=== PATIENT | female | born 2000 | race Caucasian/White ===

== ENCOUNTER 2020-04-25 17:47 | Emergency (ER) | payer BC, OTHER ==
[~2020-04-25] VITALS: Ht 160 cm; Wt 79.5 kg
[2020-04-25 19:18] LABS: URINE HCG NEGATIVE (NEG)
[2020-04-25 19:24] LABS: COLOR,URINE YELLOW (Yellow); GLUCOSE, URINE NEGATIVE (Neg); KETONES,URINE NEGATIVE (Neg); LEUKOCYTE ESTERASE ,URINE NEGATIVE (Neg); NITRITES, URINE NEGATIVE (Neg); OCCULT BLOOD,URINE MODERATE (Neg); PROTEIN,URINE NEGATIVE (Neg); UROBILINOGEN,URINE 0.2 E.U/dL (0.2-1.0)
[2020-04-25 19:35] LABS: UA COLLECTION TYPE CLN CATCH MIDSTREAM
[2020-04-25 19:37] LABS: BACTERIA,URINE 2+ /HPF (Neg); CLARITY,URINE SLIGHTLY CLOUDY (Clear); WBC,URINE 0-4 /HPF (0-4)
[2020-04-25 19:38] LABS: RBC,URINE 0-2 /HPF (0-2)
[2020-04-25 19:39] LABS: SQUAMOUS EPITHELIAL CELL,UR MANY /LPF (FEW)
[2020-04-25] MEDS ORDERED: ONDA4TAB6 PO (19:48)
== END 2020-04-25 20:06 | disposition home or self-care (01) ==
LOC: ER 17:48
DX: R11.2 Nausea with vomiting, unspecified (principal); Z20.822 Contact with and (suspected) exposure to COVID-19; R05 Cough; F17.200 Nicotine dependence, unspecified, uncomplicated; Z88.0 Allergy status to penicillin; Z88.1 Allergy status to other antibiotic agents
CPT/HCPCS: 36415; 81001; 81025; 99283; U0003

== ENCOUNTER 2020-09-26 06:06 | Emergency (ER) | payer BC, OTHER ==
[~2020-09-26] VITALS: Ht 160 cm; Wt 85.0 kg
[~2020-09-26 06:06] MED LIST: ONDA4TAB6 PO
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
[2020-09-26] MEDS ORDERED: ketorolac trometh. 30mg/ml inj. IM ONE (07:20)
[2020-09-26] MEDS ORDERED: morphine 5 MG/ML injection IM ONE (07:20)
[2020-09-26] MEDS ORDERED: morphine 4 MG/ML inj SYRINge IM ONE (07:50)
[2020-09-26] MEDS ORDERED: HYDR-3972 PO (08:57)
[2020-09-26] MEDS ORDERED: IBUP-1986 PO (08:57)
[2020-09-26] MEDS ORDERED: HYDROcodone/acetaminophen 10/325mg tab PO ONE (09:00)
[2020-09-26 09:08] VITALS: BP 138/81
[2020-09-26 09:21] LABS: CLARITY,URINE CLOUDY (Clear); COLOR,URINE YELLOW (Yellow); GLUCOSE, URINE NEGATIVE (Neg); KETONES,URINE NEGATIVE (Neg); LEUKOCYTE ESTERASE ,URINE NEGATIVE (Neg); NITRITES, URINE NEGATIVE (Neg); OCCULT BLOOD,URINE LARGE (Neg); PROTEIN,URINE NEGATIVE (Neg); UROBILINOGEN,URINE 0.2 E.U/dL (0.2-1.0)
[2020-09-26 09:27] LABS: UA COLLECTION TYPE CLN CATCH MIDSTREAM; URINE HCG NEGATIVE (NEG)
[2020-09-26 09:28] LABS: BACTERIA,URINE 2+ /HPF (Neg); MUCUS STRANDS MANY /LPF (Neg); RBC,URINE 0-2 /HPF (0-2); WBC,URINE 0-4 /HPF (0-4)
[2020-09-26 09:29] LABS: SQUAMOUS EPITHELIAL CELL,UR MANY /LPF (FEW)
== END 2020-09-26 11:10 | disposition home or self-care (01) ==
LOC: ER 06:06
DX: S00.83XA Contusion of other part of head, initial encounter (principal); S60.811A Abrasion of right wrist, initial encounter; R10.12 Left upper quadrant pain; R51.9 Headache, unspecified; M54.2 Cervicalgia; Z88.0 Allergy status to penicillin; Z88.1 Allergy status to other antibiotic agents; Z79.899 Other long term (current) drug therapy; Y08.89XA Assault by other specified means, initial encounter; Y93.89 Activity, other specified; Y92.89 Other specified places as the place of occurrence of the external cause; Y99.8 Other external cause status
CPT/HCPCS: 70450; 72125; 73080; 73110; 73130; 74176; 81001; 81025; 96372; 99285; J1885; J2270

== ENCOUNTER 2020-12-08 11:57 | Inpatient (IN) | payer BC ==
[~2020-12-08] VITALS: Ht 160 cm; Wt 79.5 kg
[~2020-12-08 11:57] MED LIST changes: +IBUP-1986 PO
[2020-12-08 12:52] LABS: BASOPHILS % (AUTO) 0.3 % (0-1); EOSINOPHILS # (AUTO) 0.1 X10'3 (0-0.9); HEMOGLOBIN 13.8 g/dl (12.0-16.0); LYMPHOCYTES # (AUTO) 1.2 X10'3 (1.1-4.8); LYMPHOCYTES % (AUTO) 17.4 % (21-51); MEAN CORPUSCULAR HEMOGLOBIN 27.8 PG (27.0-31.0); MEAN CORPUSCULAR HGB CONC 33.6 g/dL (33.0-36.5); MEAN CORPUSCULAR VOLUME 82.8 FL (78-98); MEAN PLATELET VOLUME 8.4 FL (7.4-10.4); MONOCYTES # (AUTO) 0.5 X10'3 (0-0.9); MONOCYTES % (AUTO) 7.7 % (2-12); NEUTROPHILS % (AUTO) 72.6 % (42-75); PLATELET COUNT 259 X10'3 (140-440); RED BLOOD COUNT 4.95 X10'6 (4.20-5.60); RED CELL DISTRIBUTION WIDTH 13.9 % (11.5-14.5); WHITE BLOOD COUNT 6.9 X10'3 (4.5-11.0)
[2020-12-08 13:01] LABS: ALANINE AMINOTRANSFERASE 38 U/L (12-78); ALKALINE PHOSPHATASE 82 IU/L (20-180); ANION GAP 10 (8-16); ASPARTATE AMINO TRANSFERASE 24 U/L (10-37); BILIRUBIN,TOTAL 0.4 MG/DL (0.1-1.0); BLOOD UREA NITROGEN 8 MG/DL (7-18); BUN/CREATININE RATIO 11.9 (6.6-38.0); CHLORIDE 106 MMOL/L (99-107); CREATININE 0.67 MG/DL (0.40-0.90); ETHANOL < 0.010 GM/DL (0.0-0.010); GLUCOSE 82 MG/DL (70-104); POTASSIUM 3.7 MMOL/L (3.5-5.1); SODIUM 143 MMOL/L (135-145); TOTAL CARBON DIOXIDE 27.2 MMOL/L (24-32); TOTAL PROTEIN 8.2 G/DL (6.4-8.2); eGFR > 90 ML/MIN
[2020-12-08] MEDS ORDERED: NICOTINE POLACRILEX 2 MG LOZENGE BC PRN (15:10)
[2020-12-08 15:13] LABS: URINE HCG NEGATIVE (NEG)
--- NOTE | 2020-12-08 15:15 | NUR ---
Pt BIB mother for depression with suicidal thoughts. Pt cooperative with assessment. Pt has h/o alcohol abuse per mom and pt.
[2020-12-08 15:17] LABS: COLOR,URINE YELLOW (Yellow); UA COLLECTION TYPE NON-SPECIFIED
[2020-12-08 15:18] LABS: CLARITY,URINE SLIGHTLY CLOUDY (Clear); GLUCOSE, URINE NEGATIVE (Neg); KETONES,URINE NEGATIVE (Neg); LEUKOCYTE ESTERASE ,URINE NEGATIVE (Neg); NITRITES, URINE NEGATIVE (Neg); OCCULT BLOOD,URINE SMALL (Neg); PROTEIN,URINE NEGATIVE (Neg); UROBILINOGEN,URINE 0.2 E.U/dL (0.2-1.0)
[2020-12-08] MEDS ORDERED: NO HOME MEDS (15:24)
[2020-12-08 15:29] LABS: URINE AMPHETAMINE SCREEN NEGATIVE (Neg); URINE BARBITUATE SCREEN NEGATIVE (Neg); URINE BENZODIAZEPINES SCREEN NEGATIVE (Neg); URINE CANNABINOID SCREEN NEGATIVE (Neg); URINE COCAINE SCREEN NEGATIVE (Neg); URINE METHADONE SCREEN NEGATIVE (Neg); URINE OPIATE SCREEN NEGATIVE (Neg); URINE PHENCYCLIDINE SCREEN NEGATIVE (Neg)
[2020-12-08 15:36] LABS: BACTERIA,URINE 1+ /HPF (Neg); MUCUS STRANDS MODERATE /LPF (Neg); RBC,URINE 0-2 /HPF (0-2); SQUAMOUS EPITHELIAL CELL,UR FEW /LPF (FEW)
--- NOTE | 2020-12-08 17:00 | NUR ---
Pt mom still at bedside. Pt napping on and off. Pt continues to endorse depression and suicidal thoughts.
[2020-12-08] MEDS ORDERED: magnesium hydroxide 30ml (MOM) UD suspension PO PRN (19:20)
[2020-12-08] MEDS ORDERED: traZODone 50mg tablet PO PRN (19:20)
[2020-12-08] MEDS ORDERED: mag hydrox/Alum hydrox/simeth 30ml oral suspension PO PRN (19:20)
[2020-12-08] MEDS ORDERED: LORazepam 1 MG tablet PO PRN (19:20)
[2020-12-08] MEDS ORDERED: loperamide 2mg capsule PO PRN (19:20)
[2020-12-08] MEDS ORDERED: acetaminophen 325mg tablet PO PRN ×2 (19:20)
[2020-12-08 20:30] VITALS: BP 132/75
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
--- NOTE | 2020-12-09 05:40 | NUR ---
Nursing Progress Note: Legal hold: 5150 Client on involuntary status for DTS Report received from Hiwot AUGUSTE with use of SBAR Why are they here: Pt BIB mom at pt request for depression and suicidal ideation which has increased since July when a friend of hers . Pt also has increased her alcohol intake and drinks 2-4 x/week. Assessment What has happened this shift: Pt cooperative with admission. Pt sat up in room drawing and fell asleep around 2330. S/I, H/I:+ S.I. A/VH: denies Sleep:6 hours ADL's:showered Group attendance:n/a Were meds taken:n/a Any med S/E: n/a Mental Status Exam Appearance: good hygiene, green scrubs Eye contact: fair Behavior:calm, cooperative Speech:clear, coherent Mood:depressed Affect:blunted Thought process: iintact Thought Content: r/t anxiety being in hospital Cognition: intact Insight: fair Judgment: fair Interventions PRN's used:n/a Therapeutic interventions: oriented to the unit, 1:1 to build trust and help pt feel safe, 2 person skin check upon admission, provided with diversional activities, q-15 minute observation for pt safety. Restraints/seclusion/emergency medication:n/a Justification of Continued Inpatient Treatment: To provide a safe environment while pt continues to endorse suicidal ideation. Evaluation of possible medication intervention.
[2020-12-09 07:35] VITALS: BP 110/58
[2020-12-09] MEDS ORDERED: buPROPion 75mg tablet PO ONE (09:15)
[2020-12-09] MEDS ORDERED: nicotine 21mg patch - 24 hr TD ONE (09:15)
[2020-12-09 10:08] LABS: HEMOGLOBIN A1C 5.2 % (4.5-6.2)
[2020-12-09 10:16] LABS: CHOL/HDL RATIO 3.3 (0.00-4.99); CHOLESTEROL 144 MG/DL (0-200); HDL CHOLESTEROL 44 MG/DL (35-60); LDL CHOLESTEROL 94 MG/DL (50-100); TRIGLYCERIDES 75 MG/DL (20-135)
[2020-12-09] MEDS: NICOTINE POLACRILEX 2 MG LOZENGE BC PRN (14:34)
--- NOTE | 2020-12-09 16:26 | NUR ---
Nursing Progress Note Legal hold: 5150 Client on involuntary status for DTS Report received from Hiwot AUGUSTE with use of SBAR Why are they here: Pt BIB mom at pt request for depression and suicidal ideation which has increased since July when a friend of hers . Pt also has increased her alcohol intake and drinks 2-4 x/week. Assessment What has happened this shift: Received Pt in bed sleeping w/o distress at the beginning of the shift. Pt woke for vitals and ate breakfast well. Pt tolerated assessments well and was pleasant when approached. She returned to bed and isolated to her room in the morning. Pt saw Dr Velazquez and she received first dose of Wellbutrin and Emerson. Patch. Pt showered in afternoon and got some clothes delivered from family. She spoke on phone for some time and colored in community room. Pt quiet and remains depressed. S/I, H/I: Pt endorses SI A/VH: Denies Sleep: Napped in AM ADL's: Showered Group attendance: n/a Were meds taken: Yes Any med S/E: None Mental Status Exam Appearance: Casual, clean Eye contact: Fair Behavior: Calm, cooperative Speech: Clear, coherent Mood: Depressed Affect: Blunted Thought process: Linear, intact Thought Content: Being comfortable here Cognition: Intact Insight: Fair Judgment: Fair Interventions PRN's used: Emerson. [place] Therapeutic interventions: oriented to the unit, 1:1 to build trust and help pt feel safe, 2 person skin check upon admission, provided with diversional activities, q-15 minute observation for pt safety. Restraints/seclusion/emergency medication: n/a Justification of Continued Inpatient Treatment: To provide a safe environment while pt continues to endorse suicidal ideation. Evaluation of possible medication intervention.
[2020-12-09 19:23] VITALS: BP 119/80
--- NOTE | 2020-12-10 03:42 | NUR ---
Nursing Progress Note Legal hold: 5150 Client on involuntary status for DTS Report received from Hiwot AUGUSTE with use of SBAR Why are they here: Pt BIB mom at pt request for depression and suicidal ideation which has increased since July when a friend of hers . Pt also has increased her alcohol intake and drinks 2-4 x/week. Assessment What has happened this shift: Received Pt in community room coloring and interacting appropriately with another Pt. Pt appears to be minimizing effects of ETOH binging and recent traumas. Encouraged to work on F/U plans and discussed serious nature of SI. Pt slept well w/o prn. S/I, H/I: Pt endorses SI A/VH: Denies Sleep: See sleep assessment ADL's: Showered Group attendance: n/a Were meds taken: Yes Any med S/E: None Mental Status Exam Appearance: Casual, clean Eye contact: Fair Behavior: Calm, cooperative Speech: Clear, coherent Mood: Depressed Affect: Blunted Thought process: Linear, intact Thought Content: Being comfortable here Cognition: Intact Insight: Fair Judgment: Fair Interventions PRN's used: None Therapeutic interventions: Oriented to the unit, 1:1 to build trust and help pt feel safe, provided with diversional activities, Maintain safe and therapeutic milieu, q-15 minute observation for pt safety. Restraints/seclusion/emergency medication: n/a Justification of Continued Inpatient Treatment: To provide a safe environment while pt continues to endorse suicidal ideation. Evaluation of possible medication intervention.
[2020-12-10 07:28] VITALS: BP 120/74
[2020-12-10] MEDS: buPROPion 75mg tablet PO SCH (07:34)
[2020-12-10] MEDS: nicotine 21mg patch - 24 hr TD SCH (07:34)
[2020-12-10] MEDS: NICOTINE POLACRILEX 2 MG LOZENGE BC PRN ×3 (10:37→18:41)
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
[2020-12-10 19:24] VITALS: BP 140/70
--- NOTE | 2020-12-10 23:57 | NUR ---
Nursing Progress Note: Legal hold: 5150 Client on involuntary status for DTS Report received from nurse with use of SBAR: Rogelio RN Why are they here: Pt BIB mom at pt request for depression and suicidal ideation which has increased since July when a friend of hers . Pt also has increased her alcohol intake and drinks 2-4 x/week. Assessment What has happened this shift: Patient coloring and social with peers in the community room at the beginning of shift. Pleasant and cooperative with care; no scheduled medications this shift. PRN Nicotine lozenge provided per request. Nicotine patch removed/discarded by grant writer. Patient is on menstrual cycle and provided hygiene products as necessary. She denies SI, HI, A/VH; does not appear preoccupied. Patient reports looking forward to discharging to her parents home. She participated in HS snack prior to bed; observed sleeping and does not appear to be having difficulty. S/I, H/I: Denies A/VH: Denies Sleep: Refer to sleep assessment ADL's: Independent Group attendance: NA Were meds taken: Yes Any med S/E: None observed or reported Mental Status Exam Appearance: Neat and appropriately dressed Eye contact: Moderate Behavior: Pleasant and cooperative, social Speech: Clear, audible, regular rhythm Mood: Euthymic Affect: Congruent to mood Thought process: Linear Thought Content: Goal oriented, meeting needs Cognition: A&O X4 Insight: Poor Judgment: Poor Interventions PRN's used: Nicotine Lozenge Therapeutic interventions: Introduced self and established rapport, maintained a safe and supportive environment, ensured contract for safety, provided clear and simple instructions, provided active listening and positive encouragement, and maintained Q 15min safety checks. Restraints/seclusion/emergency medication: NA Justification of Continued Inpatient Treatment: Pt. continues to require interruption of current crisis, medication adjustments, and a safe and supportive environment.
[2020-12-11] MEDS: buPROPion 75mg tablet PO SCH (08:20)
[2020-12-11] MEDS: nicotine 21mg patch - 24 hr TD SCH (08:20)
[2020-12-11] MEDS: NICOTINE POLACRILEX 2 MG LOZENGE BC PRN ×3 (08:23→21:22)
[2020-12-11 08:33] VITALS: BP 152/68
--- NOTE | 2020-12-11 12:42 | NUR ---
Nursing Progress Note: Legal hold: 5150 Client on involuntary status for DTS Report received from nurse with use of SBAR: Alice RN Why are they here: Pt BIB mom at pt request for depression and suicidal ideation which has increased since July when a friend of hers . Pt also has increased her alcohol intake and drinks 2-4 x/week. Assessment What has happened this shift: Received pt. sleeping in bed at the beginning of the shift, she awoke and attended breakfast in the Group Room. Afterwards, pt. remained up coloring and interacting with others as is her routine. Pt. showered and attended morning group, however she left early stating somewhat irritably, "I couldn't concentrate, and her voice and the slow pace were irritating me." Pt. refused the need for any PRN anxiolytic. This automatic typewriter inspector offered active listening and positive encouragement, and 1:1 completed. Pt. continues to deny any S/I, and states bluntly, "I'm fine." She continues to appear to be minimizing any MH s/s. Pt. admits she is disappointed that she will be staying on the unit until r/t medication adjustment and monitoring. When questioned by this automatic typewriter inspector regarding abstaining from alcohol when she goes home, pt. states in a somewhat dismissive way, "My parents don't have any, so I will." Pt. speaks on the telephone intermittently during the day to family members, continues to color, and hangs her artwork on the wall of her room. S/I, H/I: Denies A/VH: Denies, pt. does not appear internally preoccupied Sleep:Sleep hours are 5.75 ADL's: Independent Group attendance: Yes, however pt. left early stating, "I couldn't concentrate, and her voice and the slow pace were irritating me." Were meds taken: Yes Any med S/E: None Mental Status Exam Appearance: Neat and appropriately dressed Eye contact: Moderate Behavior: Cooperative and guarded Speech: Soft, responds minimally to direct questions Mood: Depressed Affect: Blunted Thought process: Linear Thought Content: Preoccupation on desire to discharge Cognition: A&O X4 Insight: Poor Judgment: Poor Interventions PRN's used: Nicotine Lozenge Therapeutic interventions: Maintained a safe and supportive environment, ensured contract for safety, provided clear and simple instructions, provided active listening and positive encouragement, and maintained Q 15min safety checks. Restraints/seclusion/emergency medication: N/A Justification of Continued Inpatient Treatment: Per Dr. Velazquez, pt. continues to require medication adjustment and a safe and supportive environment.
--- NOTE | 2020-12-11 14:05 | NUR ---
Pt. attended group today. Todays group was about the difference between Growth Mindset vs. Fixed Mindset. We learned about the differences and then discussed what aspect of developing a growth mindset they wanted to work on. Pt did not engaged in the group but did sit in the room and color while the group was going on. She left toward the end of the group. She did not wish to share her thoughts in the group today. Lois Graves, TOPPER PRESS OPERATOR AUTOMATIC
--- NOTE | 2020-12-11 14:30 | NUR ---
Initial: Pt admit for depression with SI. Currently on a regular diet and eating well with 100% PO intake since admit. [facility] 12/10. No documented edema or wounds. No nutrition diagnosis at this time. Will continue to follow. Recommendations: 1) Continue regular diet 2) Bowel care PRN 3) Weekly scaled weights Addendum: 12/11/20 at [address] Amended: Links added.
[2020-12-11] MEDS ORDERED: buPROPion 75mg tablet PO ONE (17:10)
--- NOTE | 2020-12-11 17:53 | NUR ---
Group Art Tx Continued: Patient was able to integrate the morning group concepts with the afternoon topic and guided imagery exercise. She was reluctant to share in group and appropriately requested to pass during the shared process time. Patient did allow this therapist to look at her drawing and journaling after the group. Content was focused on family and her belief that she would continue to improve her coping skills. She remained pleasant and appropriate with the group structure. *Please refer to the [facility] Case Notes for entire overview. Lizy Nguyen MA, HOUSEKEEPING ASSISTANT #[id number] [facility], Art Therapist Addendum: 12/11/20 at 1755 by Lizy Nguyen SS Amended: Links added.
[2020-12-11 19:31] VITALS: BP 147/84
[2020-12-11] MEDS: naltrexone 50mg tablet PO SCH (22:00)
--- NOTE | 2020-12-12 01:37 | NUR ---
Nursing Progress Note: Legal hold: 5250 Client on involuntary status for DTS Report received from nurse with use of SBAR: Rogelio RN Why are they here: Pt BIB mom at pt request for depression and suicidal ideation which has increased since July when a friend of hers . Pt also has increased her alcohol intake and drinks 2-4 x/week. Assessment What has happened this shift: Patient social in the community room at the beginning of shift. Pleasant and cooperative with care; compliant with medication. PRN Nicotine provided per request and Nicotine patch removed/discarded by story writer. Started on Naltrexone this shift; no ASE observed or reported. Patient denies SI, HI, A/VH; no delusional thought content expressed. Patient is looking forward/ hopeful to discharge to her parents. Patient showered, participated in HS snack and continued to socialize in the community room prior to bed; observed sleeping and does not appear to be having difficulty. S/I, H/I: Denies A/VH: Denies Sleep: Refer to sleep assessment ADL's: Independent Group attendance: NA Were meds taken: Yes Any med S/E: None observed or reported Mental Status Exam Appearance: Neat and appropriately dressed Eye contact: Moderate Behavior: Pleasant and cooperative, social Speech: Clear, audible, regular rhythm Mood: Euthymic Affect: Congruent to mood Thought process: Linear Thought Content: Goal oriented, meeting needs Cognition: A&O X4 Insight: Poor Judgment: Poor Interventions PRN's used: Nicotine Lozenge Therapeutic interventions: Introduced self and established rapport, maintained a safe and supportive environment, ensured contract for safety, provided clear and simple instructions, provided active listening and positive encouragement, and maintained Q 15min safety checks. Restraints/seclusion/emergency medication: NA Justification of Continued Inpatient Treatment: Pt. continues to require interruption of current crisis, medication adjustments, and a safe and supportive environment.
[2020-12-12] MEDS: buPROPion 75mg tablet PO SCH ×2 (07:23→12:08)
[2020-12-12] MEDS: nicotine 21mg patch - 24 hr TD SCH (07:23)
[2020-12-12 08:37] VITALS: BP 134/73
--- NOTE | 2020-12-12 13:46 | NUR ---
Pt. attended group today. The topic today was identifying the triggers, signs and symptoms of an upcoming episode/event so that Pts. can learn to apply coping skills before they get to a bad place with their symptoms. Pt. engaged in the group when asked a question otherwise she sat back and listened. Her mood appear a bit agitation and her affect was restricted. She was able to identify her warning signs and triggers. She identified that alcohol for her is a big trigger. She reported she will think she is feeling pretty okay and she will have a drink and then this will lead her to feelings of depression. She also was able to report that a warning sign for her of an impending episode is sleeping a lot but reported that she mostly doesn't know what starts the episodes. This "not knowing" causes her to feel anxiety about when she may feel bad again. She was alert and oriented X 4. Her thought content and thought process appeared WNL. Her demeanor was calm and she appeared a bit hesitant to fully engage with this Swimming Coach Or Instructor or her peers. Half way though the group she started doing a Word Search and seemed distracted. Lois Graves, MANAGEMENT TECHNICIAN
--- NOTE | 2020-12-12 16:40 | NUR ---
Nursing Progress Note: Legal hold: 5250 Client on involuntary status for DTS Report received from nurse with use of SBAR: Alice RN Why are they here: Pt BIB mom at pt request for depression and suicidal ideation which has increased since July when a friend of hers . Pt also has increased her alcohol intake and drinks 2-4 x/week. Assessment What has happened this shift: Pt. received sleeping in her room this morning. Pt awoke to receive her medication and 1:1 assessment completed. Pt. denies S/I, H/I, but acknowledges recent suicidal ideations at home. Pt. presents with good insights and states Ill go home with my parents and plan to f/u with mental health services after I discharge. Pt.in common area with cohorts working at her own pace coloring art pictures. Risk Assessment Analyst approached pt. to inquire how her day was going. Pt. reports Im okay but presented as guarded when conversing. Pt. ate all meals in dining room, used the telephone intermittently during the day, and attended group. S/I, H/I: Denies A/VH: Denies Sleep: Per NOC 6.5 hrs, ADL's: Independent Group attendance: Yes Were meds taken: Yes Any med S/E: None Mental Status Exam Appearance: Young female wearing street clothes Eye contact: Good Behavior: Cooperative and guarded Speech: Soft, responds minimally to direct questions Mood: Depressed Affect: Congruent with mood Thought process: Linear Thought Content: Preoccupation with discharge Cognition: A&O X4 Insight: Poor Judgment: Poor Interventions PRN's used: None Therapeutic interventions: Maintained a safe and supportive environment, ensured contract for safety, provided clear and simple instructions, provided active listening and positive encouragement, and maintained Q 15min safety checks. Restraints/seclusion/emergency medication: N/A Justification of Continued Inpatient Treatment: Per Dr. Velazquez, pt. continues to require medication adjustment and a safe and supportive environment.
[2020-12-12] MEDS: NICOTINE POLACRILEX 2 MG LOZENGE BC PRN (18:35)
[2020-12-12 19:24] VITALS: BP 127/76
[2020-12-12] MEDS: naltrexone 50mg tablet PO SCH (20:06)
--- NOTE | 2020-12-13 01:41 | NUR ---
Nursing Progress Note: Legal hold: 5250 Client on involuntary status for DTS Report received from nurse with use of SBAR: Rogelio RN Why are they here: Pt BIB mom at pt request for depression and suicidal ideation which has increased since July when a friend of hers . Pt also has increased her alcohol intake and drinks 2-4 x/week. Assessment What has happened this shift: Patient doing a puzzle in the community room with peers at the beginning of shift. Pleasant and cooperative with care; compliant with medication. PRN Nicotine lozenges provided per patient request; Nicotine patch removed/discarded by aligner typewriter. Patient denies SI, HI, A/VH; no delusional thought content expressed. Patient reports excitement to see her parents. Patient participated in HS snack and continued to socialize in community room prior to bed; observed sleeping and does not appear to be having difficulty. S/I, H/I: Denies A/VH: Denies Sleep: Refer to sleep assessment ADL's: Independent Group attendance: NA Were meds taken: Yes Any med S/E: None observed or reported Mental Status Exam Appearance: Neat and appropriately dressed Eye contact: Good Behavior: Pleasant and cooperative, social Speech: Clear, audible, regular rhythm Mood: Euthymic Affect: Congruent to mood Thought process: Linear Thought Content: Meeting needs, discharge Cognition: A&O X4 Insight: Poor Judgment: Poor Interventions PRN's used: Nicotine Lozenge x2 Therapeutic interventions: Introduced self and established rapport, maintained a safe and supportive environment, ensured contract for safety, provided clear and simple instructions, provided active listening and positive encouragement, and maintained Q 15min safety checks. Restraints/seclusion/emergency medication: NA Justification of Continued Inpatient Treatment: Pt. continues to require interruption of current crisis, medication adjustments, and a safe and supportive environment.
[2020-12-13] MEDS: buPROPion 75mg tablet PO SCH ×2 (07:27→11:52)
[2020-12-13] MEDS: nicotine 21mg patch - 24 hr TD SCH (07:28)
[2020-12-13 07:42] VITALS: BP 119/57
[2020-12-13] MEDS ORDERED: NICO-907 BC (11:01)
[2020-12-13] MEDS ORDERED: TRAZ-251 PO (11:01)
[2020-12-13] MEDS ORDERED: BUPR-94 PO (11:01)
[2020-12-13] MEDS ORDERED: NICO-687 TD (11:01)
[2020-12-13] MEDS ORDERED: NALT50TA PO (11:01)
--- NOTE | 2020-12-13 15:17 | NUR ---
Discharge Note: Reviewed all discharge instructions with Karen all paperwork signed and copies placed in chart.Follow up appts are with Psychiatrist: Appointment: 12/18/20 at 9 AM with Linda Coe, [facility] [address], [address] Her Therapist: Appointment: 12/19/20 with ANTONINO Wang, [address] [place] [address] . All medications were sent to her pharmacy of choice in [place]. Inventory completed and she left with all her belongings she came with. Pt. left the unit @0973.
== END 2020-12-13 15:05 | disposition home or self-care (01) | DRG 885 ==
LOC: ER 11:58 → ADULT MH 18:00
PROVIDERS: ADMIT Psychiatry & Neurology Psychiatry; ATTEND Psychiatry & Neurology Psychiatry
DX: F33.2 Major depressive disorder, recurrent severe without psychotic features (principal); R45.851 Suicidal ideations; F17.210 Nicotine dependence, cigarettes, uncomplicated; F10.20 Alcohol dependence, uncomplicated; Z20.822 Contact with and (suspected) exposure to COVID-19; R82.71 Bacteriuria; Z81.8 Family history of other mental and behavioral disorders; Z88.0 Allergy status to penicillin; Z88.1 Allergy status to other antibiotic agents; Z71.6 Tobacco abuse counseling; Z71.41 Alcohol abuse counseling and surveillance of alcoholic
CPT/HCPCS: 36415; 80053; 80061; 80305; 80320; 81001; 81025; 83036; 85025; 87081; 87635; 99285; C9803

== ENCOUNTER 2021-02-17 22:24 | Emergency (ER) | payer BC ==
[~2021-02-17] VITALS: Ht 160 cm; Wt 86.8 kg
[~2021-02-17 22:24] MED LIST changes: +BUPR-94 PO; -IBUP-1986 PO; +NALT50TA PO; +NICO-687 TD; +NICO-907 BC; -ONDA4TAB6 PO; +TRAZ-251 PO
[2021-02-17 22:49] VITALS: BP 127/81
== END 2021-02-17 23:22 | disposition home or self-care (01) ==
LOC: ER 22:25
DX: B34.9 Viral infection, unspecified (principal); Z20.822 Contact with and (suspected) exposure to COVID-19; Z88.0 Allergy status to penicillin; Z88.1 Allergy status to other antibiotic agents; Z79.899 Other long term (current) drug therapy
CPT/HCPCS: 36415; 99283; U0003; U0005

== ENCOUNTER 2022-04-02 | Emergency (ER) | payer BC ==
[~2022-04-02] VITALS: Ht 157.5 cm; Wt 85.0 kg
[2022-04-02 00:06] VITALS: BP 139/96
[2022-04-02 00:53] LABS: BASOPHILS % (AUTO) 0.4 % (0-1); EOSINOPHILS # (AUTO) 0.1 X10'3 (0-0.9); EOSINOPHILS % (AUTO) 1.4 % (0-6); HEMATOCRIT 36.2 % (35.0-45.0); LYMPHOCYTES # (AUTO) 1.9 X10'3 (1.1-4.8); LYMPHOCYTES % (AUTO) 21.2 % (21-51); MEAN CORPUSCULAR HEMOGLOBIN 25.6 PG (27.0-31.0); MEAN CORPUSCULAR VOLUME 77.6 FL (78-98); MEAN PLATELET VOLUME 8.2 FL (7.4-10.4); MONOCYTES # (AUTO) 0.6 X10'3 (0-0.9); MONOCYTES % (AUTO) 6.8 % (2-12); NEUTROPHILS # (AUTO) 6.2 X10'3 (1.8-7.7); NEUTROPHILS % (AUTO) 70.2 % (42-75); PLATELET COUNT 255 X10'3 (140-440); RED BLOOD COUNT 4.67 X10'6 (4.20-5.60); RED CELL DISTRIBUTION WIDTH 15.3 % (11.5-14.5); WHITE BLOOD COUNT 8.9 X10'3 (4.5-11.0)
[2022-04-02 01:02] LABS: ALANINE AMINOTRANSFERASE 33 U/L (12-78); ALBUMIN 3.9 G/DL (3.4-5.0); ALBUMIN/GLOBULIN RATIO 1.1 (1.1-1.5); ALKALINE PHOSPHATASE 75 IU/L (46-116); ANION GAP 11 (8-16); ASPARTATE AMINO TRANSFERASE 20 U/L (10-37); BILIRUBIN,TOTAL 0.2 MG/DL (0.1-1.0); BLOOD UREA NITROGEN 18 MG/DL (7-18); BUN/CREATININE RATIO 22.8 (6.6-38.0); CALCIUM 9.5 MG/DL (8.5-10.1); CHLORIDE 105 MMOL/L (99-107); CREATININE 0.79 MG/DL (0.40-0.90); GLUCOSE 111 MG/DL (70-104); LIPASE 64 U/L (73-393); POTASSIUM 3.8 MMOL/L (3.5-5.1); SODIUM 145 MMOL/L (135-145); TOTAL CARBON DIOXIDE 28.6 MMOL/L (24-32); TOTAL PROTEIN 7.6 G/DL (6.4-8.2); eGFR > 90 ML/MIN
--- NOTE | 2022-04-02 01:06 | NUR ---
Patient dancing and singing in room with friend accompanying her. Educated on appropriate behavior and volume level in Emergency Room. No signs of distress.
[2022-04-02] MEDS ORDERED: naproxen 500mg tablet PO ONE (01:35)
[2022-04-02] MEDS ORDERED: NAPR-1154 PO (01:37)
== END 2022-04-02 01:46 | disposition home or self-care (01) ==
LOC: ER 00:05
DX: N92.0 Excessive and frequent menstruation with regular cycle (principal); F32.9 Major depressive disorder, single episode, unspecified; F17.200 Nicotine dependence, unspecified, uncomplicated; Z72.89 Other problems related to lifestyle; Z88.0 Allergy status to penicillin; Z88.1 Allergy status to other antibiotic agents; Z88.5 Allergy status to narcotic agent; Z79.899 Other long term (current) drug therapy
CPT/HCPCS: 36415; 80053; 83690; 85025; 99283

== ENCOUNTER 2023-04-29 22:33 | Emergency (ER) | payer BC ==
[~2023-04-29] VITALS: Ht 160 cm; Wt 91.6 kg
[~2023-04-29 22:33] MED LIST changes: +NAPR-1154 PO
[2023-04-29 23:26] LABS: BASOPHILS % (AUTO) 0.5 % (0-1); EOSINOPHILS % (AUTO) 1.3 % (0-6); HEMATOCRIT 37.8 % (35.0-45.0); HEMOGLOBIN 12.5 g/dl (12.0-16.0); LYMPHOCYTES # (AUTO) 0.7 X10'3 (1.1-4.8); LYMPHOCYTES % (AUTO) 18.2 % (21-51); MEAN CORPUSCULAR HEMOGLOBIN 26.1 PG (27.0-31.0); MEAN CORPUSCULAR HGB CONC 32.9 g/dL (33.0-36.5); MEAN CORPUSCULAR VOLUME 79.3 FL (78-98); MEAN PLATELET VOLUME 8.5 FL (7.4-10.4); MONOCYTES # (AUTO) 0.6 X10'3 (0-0.9); MONOCYTES % (AUTO) 16.1 % (2-12); NEUTROPHILS # (AUTO) 2.4 X10'3 (1.8-7.7); NEUTROPHILS % (AUTO) 63.9 % (42-75); PLATELET COUNT 199 X10'3 (140-440); RED BLOOD COUNT 4.77 X10'6 (4.20-5.60); RED CELL DISTRIBUTION WIDTH 14.5 % (11.5-14.5); WHITE BLOOD COUNT 3.8 X10'3 (4.5-11.0)
[2023-04-29 23:38] LABS: ALBUMIN 3.7 G/DL (3.4-5.0); ANION GAP 10 (8-16); BLOOD UREA NITROGEN 11 MG/DL (7-18); BUN/CREATININE RATIO 13.6 (10.0-20.0); CALCIUM 8.7 MG/DL (8.5-10.1); CHLORIDE 106 MMOL/L (99-107); CREATININE 0.81 MG/DL (0.40-0.90); GLUCOSE 114 MG/DL (70-104); POTASSIUM 3.8 MMOL/L (3.5-5.1); PRO BRAIN NATRIURETIC PEPTIDE < 30 PG/ML (0-125); SODIUM 141 MMOL/L (135-145); TOTAL CARBON DIOXIDE 25.5 MMOL/L (24-32); eCRCL 90 ML/MIN; eGFR 88 ML/MIN
[2023-04-30 00:25] LABS: TOTAL CELLS COUNTED 100
[2023-04-30 00:27] LABS: PLATELET ESTIMATE NORMAL
[2023-04-30 00:29] LABS: LARGE PLATELETS FEW
[2023-04-30 02:19] LABS: BILIRUBIN,URINE NEGATIVE (Neg); CLARITY,URINE CLOUDY (Clear); COLOR,URINE YELLOW (Yellow); GLUCOSE, URINE NEGATIVE (Neg); KETONES,URINE NEGATIVE (Neg); LEUKOCYTE ESTERASE ,URINE TRACE (Neg); NITRITES, URINE NEGATIVE (Neg); OCCULT BLOOD,URINE NEGATIVE (Neg); PH,URINE 5.5 (4.8-8.0); PROTEIN,URINE NEGATIVE (Neg); UROBILINOGEN,URINE 0.2 E.U/dL (0.2-1.0)
[2023-04-30 02:49] LABS: UA COLLECTION TYPE CLN CATCH MIDSTREAM
[2023-04-30 02:51] LABS: CAL OXALATE CRYSTALS 4+ /HPF (NEGATIVE); MUCUS STRANDS MANY /LPF (Neg); SQUAMOUS EPITHELIAL CELL,UR MANY /LPF (FEW)
[2023-04-30 02:54] LABS: BACTERIA,URINE 1+ /HPF (Neg); RBC,URINE 0-2 /HPF (0-2)
[2023-04-30 03:45] VITALS: BP 171/99; PULSE 105; RESP 16; TEMP 99; O2SAT 99
== END 2023-04-30 05:30 | disposition left against medical advice (07) ==
LOC: ER 22:33
DX: R06.02 Shortness of breath (principal); R05.9 Cough, unspecified; R11.2 Nausea with vomiting, unspecified; Z53.21 Procedure and treatment not carried out due to patient leaving prior to being seen by health care provider
CPT/HCPCS: 36415; 71045; 80048; 81001; 83605; 83880; 84145; 84484; 85007; 85025; 87040; 93005; 99281

== ENCOUNTER 2023-08-25 00:08 | Emergency (ER) | payer BC ==
[~2023-08-25] VITALS: Ht 157.5 cm; Wt 86.4 kg
[~2023-08-25 00:08] MED LIST changes: -NALT50TA PO; +NALT50TA5 PO
[2023-08-25 00:21] VITALS: BP 135/88; PULSE 93; RESP 14; TEMP 98.7; O2SAT 99
[2023-08-25] MEDS ORDERED: CEPH-585 PO (01:17)
[2023-08-25] MEDS ORDERED: SULF1TAB49 PO (01:17)
[2023-08-25] MEDS: cephalexin 250mg capsule PO ONE (01:28)
== END 2023-08-25 01:43 | disposition home or self-care (01) ==
LOC: ER 00:08
DX: L03.115 Cellulitis of right lower limb (principal); L03.114 Cellulitis of left upper limb; L03.317 Cellulitis of buttock; R23.4 Changes in skin texture; F32.A Depression, unspecified; Z88.1 Allergy status to other antibiotic agents; Z88.0 Allergy status to penicillin; Z88.8 Allergy status to other drugs, medicaments and biological substances; Z79.1 Long term (current) use of non-steroidal anti-inflammatories (NSAID); Z79.899 Other long term (current) drug therapy
CPT/HCPCS: 99283

== ENCOUNTER 2024-09-10 23:41 | Emergency (ER) | payer BC ==
[~2024-09-10] VITALS: Ht 160 cm; Wt 90.9 kg
[2024-09-10 23:49] VITALS: BP 132/82; PULSE 104; RESP 20; TEMP 97.6; O2SAT 96
--- NOTE | 2024-09-11 09:02 | ELECTROCARDIOGRAPH REPORT ---
[facility] Test Date: 2024-09-10 Test Time: 23:46:50 Pat Name: LO RAWLS Department: EMERGENCY ROOM Room: Gender: F Collar Cutter: MANA : 2000 Requested By: FLORA FORDE Order Number: [id number] Reading MD: Dr. Flora Forde Measurements Intervals [place] Rate: 102 P: 35 MI: 146 QRS: 18 QRSD: 83 T: 1 QT: 324 QTc: 423 Interpretive Statements Sinus tachycardia Probable left atrial enlargement Electronically Signed On 09-11-2024 19:43:[address] Flora Forde Please click the below link to view image of tracing.
== END 2024-09-11 02:00 | disposition left against medical advice (07) ==
LOC: ER 23:42
DX: R07.89 Other chest pain (principal); Z53.21 Procedure and treatment not carried out due to patient leaving prior to being seen by health care provider; Z88.1 Allergy status to other antibiotic agents; Z88.0 Allergy status to penicillin; Z88.5 Allergy status to narcotic agent
CPT/HCPCS: 93005